=== PATIENT | male | born 1940 | race Caucasian/White ===

== ENCOUNTER 2019-08-04 09:09 | Observation (INO) ==
[2019-08-04] MEDS ORDERED: 0.9 % Sodium Chloride 1,000 ML IVC ONE (09:11)
[2019-08-04] MEDS ORDERED: Isovue-370 500 ML BOTTLE IVP ONE (09:11)
[2019-08-04 09:34] LABS: Hematocrit 36.9 % (37.5-50.1); Hemoglobin 12.4 g/dL (12.9-16.9); Mean Corpuscular HGB Conc 33.6 g/dL (31.6-35.5); Mean Corpuscular Volume 98.1 fL (83.0-100.0); Platelet Count 268 K/mcL (140-400); Red Blood Count 3.76 M/mcL (4.19-5.50); Red Cell Distribution Width 13.1 % (11.5-14.5)
[2019-08-04 09:42] LABS: INR 0.9; Prothrombin Time 10.3 Seconds (9.4-12.1)
[2019-08-04 09:44] LABS: Activated Partial Thrombo Time 36.5 Seconds (26.0-36.0)
[2019-08-04 10:03] LABS: BUN/Creatinine Ratio 15 (6-26); Blood Urea Nitrogen 17 mg/dL (8-23); Calcium 11.1 mg/dL (8.6-10.3); Carbon Dioxide 24 mEq/L (23-29); Chloride 109 mEq/L (98-107); Creatine Kinase 69 Units/L (30-223); Glucose 101 mg/dL (70-105); Osmolality,Calculated 292 (280-300); Sodium 140 mEq/L (136-145); Troponin I < 0.03 ng/mL (< 0.04); eGFR For African Americans > 60 (> 60); eGFR For Non-African Americans > 60 (> 60)
[2019-08-04] MEDS ORDERED: Aspirin 325 MG TABLET PO ONE (10:11)
[2019-08-04 10:17] LABS: Bilirubin,Urine Negative (Negative); Blood,Urine Negative (Negative); Clarity,Urine Clear (Clear); Color,Urine Yellow (Yellow); Glucose,Urine (UA) Normal (Normal); Ketones,Urine Negative (Negative); Leukocyte Esterase,Urine Negative (Negative); Nitrite,Urine Negative (Negative); Protein,Urine Negative (Neg-Trace); Specific Gravity,Urine 1.023 (1.010-1.025); Urobilinogen,Urine Normal (Normal)
[2019-08-04] MEDS ORDERED: Acetaminophen 325 MG TABLET PO PRN (10:20)
[2019-08-04] MEDS ORDERED: Naloxone 0.4 MG/ML INJ IVP PRN (10:20)
[2019-08-04] MEDS ORDERED: Ondansetron 4 MG/2 ML VIAL IVP PRN (10:20)
[2019-08-04 12:19] LABS: Alanine Aminotransferase 11 Units/L (7-52); Albumin/Globulin Ratio 1.4 (1.1-2.2); Alkaline Phosphatase 64 Units/L (34-104); Aspartate Amino Transferase 16 Units/L (13-39); BUN/Creatinine Ratio 15 (6-26); Bilirubin,Direct 0.1 mg/dL (0.0-0.2); Bilirubin,Indirect 0.4 mg/dL (0.0-1.0); Bilirubin,Total 0.5 mg/dL (0.3-1.0); Blood Urea Nitrogen 16 mg/dL (8-23); Calcium 10.9 mg/dL (8.6-10.3); Carbon Dioxide 27 mEq/L (23-29); Chloride 108 mEq/L (98-107); Globulin 2.8 g/dL (2.4-3.5); Glucose 101 mg/dL (70-105); Osmolality,Calculated 293 (280-300); Potassium 3.9 mEq/L (3.5-5.1); Sodium 141 mEq/L (136-145); Total Protein 6.8 g/dL (6.4-8.9); eGFR For African Americans > 60 (> 60); eGFR For Non-African Americans > 60 (> 60)
[2019-08-04] MEDS ORDERED: Nitroglycerin 0.4 MG TAB.SUBL SL PRN (13:10)
[2019-08-04] MEDS ORDERED: Sennosides/Docusate Sodium TABLET PO PRN (13:10)
[2019-08-04] MEDS ORDERED: Artificial Tears SOLN 15 ML BOTTLE BOTH EYES SCH (15:00)
[2019-08-04] MEDS: 0.9 % Sodium Chloride 1,000 ML IVC SCH (15:30)
[2019-08-04] MEDS ORDERED: Furosemide 40 MG/4 ML VIAL IVP ONE (18:25)
[2019-08-04] MEDS: amLODIPine 5 MG TABLET PO SCH (18:36)
[2019-08-04] MEDS: carvediloL 6.25 MG TABLET PO SCH (20:08)
[2019-08-04] MEDS: Tetrahydrozoline 15 ML BOTTLE BOTH EYES SCH (20:09)
[2019-08-04] MEDS ORDERED: Finasteride 5 MG TABLET PO SCH (21:00)
[2019-08-05] MEDS: 0.9 % Sodium Chloride 1,000 ML IVC SCH ×3 (01:03→08:56)
[2019-08-05 02:43] LABS: Basophils # 0.1 K/mcL (0.0-0.2); Basophils % 1.2 %; Eosinophils # 0.4 K/mcL (0.0-0.6); Eosinophils % 5.5 %; Hematocrit 33.4 % (37.5-50.1); Hemoglobin 11.4 g/dL (12.9-16.9); Immature Granulocytes % 0.1 % (0-4); Lymphocytes # 2.4 K/mcL (0.6-4.6); Lymphocytes % 36.5 %; Mean Corpuscular HGB Conc 34.1 g/dL (31.6-35.5); Mean Corpuscular Hemoglobin 32.9 pg (28.0-33.3); Mean Corpuscular Volume 96.5 fL (83.0-100.0); Mean Platelet Volume 10.3 fL (9.4-12.4); Monocytes # 1.1 K/mcL (0.0-1.3); Monocytes % 16.1 %; Neutrophils # 2.7 K/mcL (1.6-8.9); Platelet Count 262 K/mcL (140-400); Prothrombin Time 11.4 Seconds (9.4-12.1); Red Blood Count 3.46 M/mcL (4.19-5.50); Red Cell Distribution Width 13.2 % (11.5-14.5); Segmented Neutrophils % 40.6 %; White Blood Count 6.7 K/mcL (4.3-11.1)
[2019-08-05 03:02] LABS: Troponin I < 0.03 ng/mL (< 0.04)
[2019-08-05 03:03] LABS: Alanine Aminotransferase 9 Units/L (7-52); Albumin 3.4 g/dL (3.5-5.7); Albumin/Globulin Ratio 1.4 (1.1-2.2); Alkaline Phosphatase 47 Units/L (34-104); Aspartate Amino Transferase 14 Units/L (13-39); BUN/Creatinine Ratio 17 (6-26); Bilirubin,Total 0.4 mg/dL (0.3-1.0); Blood Urea Nitrogen 16 mg/dL (8-23); Calcium 10.1 mg/dL (8.6-10.3); Carbon Dioxide 21 mEq/L (23-29); Chloride 108 mEq/L (98-107); Chol/HDL Ratio 5.6 (0-4.9); Cholesterol 224 mg/dL (< 200); Globulin 2.4 g/dL (2.4-3.5); Glucose 90 mg/dL (70-105); HDL Cholesterol 40 mg/dL (40-59); LDL Cholesterol,Calculated 144 mg/dL (0-99); Magnesium 1.8 mg/dL (1.6-2.6); Osmolality,Calculated 285 (280-300); Potassium 3.3 mEq/L (3.5-5.1); Sodium 137 mEq/L (136-145); Total Protein 5.8 g/dL (6.4-8.9); Triglycerides 199 mg/dL (< 150); eGFR For African Americans > 60 (> 60); eGFR For Non-African Americans > 60 (> 60)
[2019-08-05] MEDS: carvediloL 6.25 MG TABLET PO SCH (08:45)
[2019-08-05] MEDS: amLODIPine 5 MG TABLET PO SCH (08:45)
[2019-08-05] MEDS: Tetrahydrozoline 15 ML BOTTLE BOTH EYES SCH (08:46)
[2019-08-05] MEDS ORDERED: Aspirin Enteric Coated 81 MG Tablet PO SCH (09:00)
[2019-08-05] MEDS ORDERED: BENZOYL PEROXIDE 5% TP SCH (09:00)
[2019-08-05] MEDS ORDERED: Cholecalciferol (D-3) 1,000 UNIT (25MCG) TABLET PO SCH (09:00)
[2019-08-05] MEDS ORDERED: Furosemide 40 MG TABLET PO SCH (09:00)
[2019-08-05 09:54] LABS: Estimated Average Glucose 120 mg/dl
[2019-08-05 11:32] VITALS: BP 140/60
== END 2019-08-05 14:00 | disposition home or self-care (01) ==
LOC: 3BNU 09:09 → EMEROOARM 09:09 → 3BNU 11:29
PROVIDERS: ADMIT Pharmacist; ATTEND Pharmacist